=== PATIENT | female | born 1945 | race Caucasian/White ===

== ENCOUNTER → 2016-12-01 | Outpatient (CLI) | payer BC ==
--- NOTE | 2016-12-01 15:50 | MAMMOGRAPHY REPORT ---
BILATERAL DIGITAL SCREENING MAMMOGRAM WITH CAD: 12/01/2016 CLINICAL HISTORY: Routine screening examination. TECHNIQUE: Bilateral CC and MLO views were obtained. Current study was also evaluated with a Compute r Aided Detection (CAD) system. COMPARISON: Comparison is made to exams dated: 11/29/2015 mammogram, 11/23/2014 mammogram, 11/10/2013 ma mmogram, 10/21/2012 mammogram, 10/21/2011 mammogram - [facility], and 10/11/2007. BREAST COMPOSITION: The tissue of both breasts is almost entirely fatty. FINDINGS: There are stable benign grouping of calcifications in the right breast. No new suspicious mass, architectural distortion or cluster of microcalcifications is seen. IMPRESSION: ACR BI-RADS CATEGORY 2: BENIGN There is no mammographic evidence of malignancy. A 1 year screening mammogram is recommended. The pa tient will receive written notification of the results. Approximately 10% of breast cancers are not detected with mammography. A negative mammographic report should not delay biopsy if a clinically suggestive mass is present. Eloise Floyd M.D. ay/:12/01/2016 15:28:03 Fire Sprinkler Designer: Sade CARRENO(R)(M), [facility] letter sent: Normal 1/2 BI-RADS Code: ACR BI-RADS Category 2: Benign
== END | disposition home or self-care (01) ==
LOC: C.MAMM 09:56
PROVIDERS: ATTEND Nurse Practitioner
DX: M81.0 Age-related osteoporosis without current pathological fracture (principal); Z78.0 Asymptomatic menopausal state; Z12.31 Encounter for screening mammogram for malignant neoplasm of breast

== ENCOUNTER 2023-12-25 09:59 | Observation (INO) ==
--- NOTE | 2023-11-19 08:55 | PAT Medication Instructions ---
Medication Instructions Date of Service November 19, 2023 Home Medications ashwagandha root extract 500 mg capsule 500 mg PO QDL magnesium 500 mg tablet 500 mg PO QAM multivitamin 1 tab PO QAM STOP taking 2 weeks before surgery (or as soon as possible if surgery is within 2 weeks) ashwagandha root extract 500 mg capsule 500 mg PO QDL DO NOT take the morning of surgery magnesium 500 mg tablet 500 mg PO QAM multivitamin 1 tab PO QAM Other Notes NOTHING TO EAT OR DRINK AFTER MIDNIGHT If you have any questions please call us at [phone] or [phone] or [phone] or [phone]
--- NOTE | 2023-11-30 12:19 | Anesthesiology Consultation ---
Date of Service November 30, 2023 Assessment & Plan (1) Encounter for pre-operative examination: - Infectious disease screening: Per assessment on 11/30/23: No known recent infectious disease contacts or current infectious disease symptoms. - Outpatient joint assessment: Pt currently scheduled for inpatient pathway. If surgeon requests review for outpatient joint pathway, patient is an acceptable candidate for outpatient joint program from anesthesia standpoint pending surgeon's office assessment that patient is motivated, has good support and completes Same Day Joint Program preop requirements. - Preop CXR: Done 11/30/23- notes "Indeterminate 8 mm nodular density projects over the right suprahilar lung. Findings could be correlated with a nonemergent follow-up chest CT." Workload message written to PCP regarding preop CXR. Received PCP response 12/01/23 that PCP recommends patient schedule appointment to review further. - Patient acceptable risk for surgery pending upcoming PCP visit/CXR response (MADISYN, appt 12/03). Chart Review Chart Review: Patient seen in Pre Admission Testing Teaching & Discussion Pre-Anesthesia Teaching/Discussion Notes: Instructed NPO after midnight before surgery,except medications with 15 cc of water. Medication instructions provided according to the PAT guidelines. History Surgery Operation Date: 12/25/23 12:00 Proposed Procedures p Right Total Knee Arthroplasty - Vinicio Mejía DO Height/Weight Height: 4 ft 11 in Weight: 59.3 kg Allergies Allergy/AdvReac Type Severity Reaction Status Date / Time No Known Allergies Allergy Verified 11/17/23 07:25 Medications Home Medications Medication Instructions Recorded Confirmed Last Taken ashwagandha root extract 500 mg 500 mg PO QDL 11/17/23 11/17/23 Unknown capsule magnesium 500 mg tablet 500 mg PO QAM 11/17/23 11/17/23 Unknown multivitamin 1 tab PO QAM 11/17/23 11/17/23 Unknown Past Medical History Medical History (Updated 11/26/23 @ 16:15 by Vandana Manning) Elevated BP without diagnosis of hypertension Heart burn IBS (irritable bowel syndrome) Osteoarthritis Osteoporosis Sciatica Exercise / Class Metabolic Activity II 4-5 Yardwork/Stairs/Walk up hill (one FS: No CP, no SOB) Past Family History Family History Sister Diabetes Denies family history of Ovarian cancer Prostate cancer Myocardial infarction Breast cancer Colorectal cancer Hypertension Past Surgical History Surgical History (Updated 11/26/23 @ 16:15 by Vandana Manning) H/O wrist surgery Right History of cataract surgery Bilateral Hx of colonoscopy Hx of local excision of skin lesion Nose "Pre-cancerous" S/P excision of ganglion cyst Left Hand Past Anesthesia History No Hx of Anesthesia Complications and No Family Hx of Anesthesia Complications History of PONV No Hx of PONV Social History Smoking Status: Never smoker Do You Dip or Chew Tobacco: No Hx Alcohol Use: No Hx Substance Use: No substance use type: does not use Review of Systems Patient denies chest pain, shortness of breath, dyspnea on exertion, fever, chills, cough, wheezing. Physical Exam Vital Signs BP 167/80 P 64 TEMP 97.9 SP02 95%RA RESP 16 Physical Full cervical extension range of motion. Full TMJ range of motion. TMD > 3.5 finger breaths Mallampati Score I Dentition: Missing molars/sides Lungs: clear throughout to auscultation Cardiac: regular rate and rhythm, no murmurs noted Spine: normal Carotid arteries: negative bruit Extremities: no LE edema Lab Results Anesthesia Preop Results Results Anesthesia Widget: WBC 6.86 K/ul (4.8-10.8) 11/30/23 Hgb 12.2 g/dl (12.0-16.0) 11/30/23 Hct 37.1 % (37.0-47.0) 11/30/23 Plt 375 K/uL (130-400) 11/30/23 Na 132 mmol/L (136-145) L 11/30/23 K 4.2 mmol/L (3.5-5.1) 11/30/23 Cl 96 mmol/L (98-107) L 11/30/23 CO2 28 mmol/L (21-32) 11/30/23 BUN 12 mg/dl (6-23) 11/30/23 Creat 0.67 mg/dl (0.6-1.2) 11/30/23 Glucose Level 87 mg/dl (70-99(Fasting)) 11/30/23 PT 11.4 Seconds (9.0-12.0) 11/30/23 PTT 32 Seconds (21-31) H 11/30/23 INR 1.1 (0.9-1.1) 11/30/23 Blood Type A Negative 11/30/23 Antibody Screen NEGATIVE 11/30/23 Testing Electrocardiogram Date: 11/30/23 NSR at 60bpm. "Normal ECG" Chest X-Ray Date: 11/30/23 FINDINGS: Cardiomediastinal and hilar silhouettes are within normal limits. No pneumothorax, pleural effusion or airspace consolidation. 8 mm nodular density projects over the right upper lung. Sigmoidal thoracolumbar scoliosis. IMPRESSION: No acute processes of the chest. Indeterminate 8 mm nodular density projects over the right suprahilar lung. Findings could be correlated with a nonemergent follow-up chest CT.
--- NOTE | 2023-12-24 15:22 | History & Physical Report ---
Date of Service December 24, 2023 Assessment & Plan (1) Osteoarthritis of right knee: We will proceed with a right total knee arthroplasty. Postoperatively she will be started on aspirin for DVT prophylaxis and kept overnight in the hospital for postop medical management. She plans to use energy physical therapy upon discharge. History of Present Illness Chief Complaint: Osteoarthritis of the right knee. Primary Care Provider: TEMITOPE Lobo Jessy is a pleasant 78-year-old female who hasbeen dealing with chronic, increasing right knee pain. She works out in the mornings and she walks her dogs but she hasbeen cutting her workouts and her dog walking shorter because of her right knee. She hasdeveloped this significant valgus deformity of the right knee. She has to put ice on her knee every day. She wears the knee brace. X-rays and clinical examination been diagnostic for advanced osteoarthritis of the right knee. After failed conservative treatment, she has elected to proceed with a right total knee arthroplasty. Allergies Allergy/AdvReac Type Severity Reaction Status Date / Time No Known Allergies Allergy Verified 12/04/23 14:24 Home Medications Medication Instructions Recorded Confirmed Type ashwagandha root extract 500 mg 500 mg PO QDL 11/17/23 12/04/23 History capsule magnesium 500 mg tablet 500 mg PO QAM 11/17/23 12/04/23 History multivitamin 1 tab PO QAM 11/17/23 12/04/23 History Past Med/Surg History Problem List Interstitial lung abnormality present on imaging study Actinic keratosis Encounter for pre-operative examination Medical History Osteoarthritis IBS (irritable bowel syndrome) Heart burn Elevated BP without diagnosis of hypertension Sciatica Osteoporosis Surgical History Hx of local excision of skin lesion Nose "Pre-cancerous" Hx of colonoscopy History of cataract surgery Bilateral S/P excision of ganglion cyst Left Hand H/O wrist surgery Right Family History Sister Diabetes Denies family history of Ovarian cancer Prostate cancer Myocardial infarction Breast cancer Colorectal cancer Hypertension Social History Smoking Status: Never smoker Second Hand Exposure: No; Do You Dip or Chew Tobacco: No; Tobacco Cessation Education Requested by Patient: No Hx Alcohol Use: No Hx Substance Use: No Preferred Language: New Zealander Communication Ability: Effective Chair Spring Assembler Required: No Beliefs That Will Affect Care: None marital status: / Current Living Situation: Alone current occupational status: retired Other Information That Helps Us Care for You: No Feels Safe at Home: Yes Safety Concerns: Feels Safe At This Time caffeine: Yes (coffee and tea) Dental Care, Regularly: Yes Physical Activity Frequency: 5-6 Times per Week Physical Activity Frequency Comment: walking and bike Seatbelt Use: always Sunscreen Use: No Assistive Devices: Crutches and Glasses Assistive Devices Comment: "I hang on to a crutch when my knee feels weak" Review of Systems All systems reviewed & are unremarkable except as noted in HPI & below. Physical Exam On physical examination of the right knee, she has a significant valgus deformity. She has tenderness palpation over the distal lateral femoral condyle and over the lateral joint line.. Constitutional WD/WN, vitals as above Eyes PERRL, conjunctivae normal, anicteric sclerae ENMT external ear and nose normal, oropharynx normal Neck trachea midline, no thyromegaly Respiratory normal respiratory effort Cardiovascular RRR, no murmur, no edema Gastrointestinal (Abdomen) normal bowel sounds, soft, nontender, no hepatosplenomegaly Psychiatric A+Ox3, euthymic affect Results & Data Results & Data Laboratory Results . Diagnostic Findings X-rays of the right knee show advanced osteoarthritis with joint space narrowing, osteophyte formation, and [id number] tubulation. PG Care Time/CCT Total # of Minutes Spent Total Time Spent with Patient: Total time spent is greater than 50% in coordination of care (as documented) at patient's floor/unit and/or counseling patient: Coding Level of Care Code None Diagnoses Osteoarthritis of right knee M17.11
[~2023-12-25 09:59] MED LIST: BUPIVACAINE 0.5 % 5 MG/1 ML PF 10ML VIAL ONE; ROPIVACAINE 0.5% 5 MG/ML 30 ML VIAL ONE
[2023-12-25] MEDS: GABAPENTIN 300 MG CAP PO SCH (10:48)
[2023-12-25] MEDS: FAMOTIDINE 20 MG TAB PO SCH (10:48)
[2023-12-25] MEDS: ACETAMINOPHEN 500 MG TAB PO SCH ×2 (10:48→18:31)
[2023-12-25] MEDS: LR 500ML BOLUS, THEN 15ML/HR IV SCH (10:48)
[2023-12-25] MEDS: dexAMETHasone**PF** 10 MG/ML VIAL IV SCH (10:48)
[2023-12-25] MEDS: LR 60ML/HR IV SCH (10:48)
[2023-12-25] MEDS ORDERED: ATROPINE SULFATE 0.1 MG/ML 10ML SYR IV PRN (10:53)
[2023-12-25] MEDS ORDERED: ePHEDrine sulfate 50 MG/ML AMP IV PRN (10:53)
[2023-12-25] MEDS ORDERED: HYDROmorphone INJ 1 MG/ML SYRINGE IV PRN (10:53)
[2023-12-25] MEDS ORDERED: PROMETHAZINE HCL 6.25 MG in SODIUM CHLORIDE 0.9% 50 ML IV PRN (10:53)
--- NOTE | 2023-12-25 11:13 | History & Physical Bridge Note ---
Date of Service December 25, 2023 History & Physical Bridge Note I have examined the patient, reviewed the History & Physical and in the interval since the performance of the History & Physical I have noted the following changes of clinical significance: no changes noted
[2023-12-25] MEDS ORDERED: PROPOFOL IV EMULSION 10 MG/ML 20 ML VIAL IV ONE (11:42)
[2023-12-25] MEDS ORDERED: fentaNYL citrate PF 100 MCG/2 ML VIAL ONE (11:43)
[2023-12-25] MEDS ORDERED: MIDAZOLAM HCL 1 MG/ML 2ML VIAL ONE (11:43)
[2023-12-25] MEDS: TRANEXAMIC ACID 1,000 MG **IV Pre-op IV SCH (11:55)
[2023-12-25] MEDS: ceFAZolin 2000MG 2,000 MG/15 ML SYR IV SCH ×2 (12:11→20:12)
[2023-12-25] MEDS: ROPIV 0.5% 246mg, Ketorolac 30mg, EPINEPHrine 0.5mg in NSS INFIL SCH (12:47)
[2023-12-25] MEDS: ORTHO JOINT ANESTHETIC ONE (12:48)
[2023-12-25] MEDS ORDERED: ONDANSETRON INJ 2 MG/ML 2 ML VIAL ONE (12:56)
[2023-12-25] MEDS ORDERED: ePHEDrine sulfate 50 MG/5 ML SYR ONE (12:56)
[2023-12-25] MEDS: TRANEXAMIC ACID 1,000 MG **IV Intra-op IV SCH (13:12)
--- NOTE | 2023-12-25 15:18 | Anesthesiology Progress Note ---
Date of Service December 25, 2023 Anesthesia Post Procedure Vital Signs Vital Signs: Temp Pulse Pulse Resp BP Pulse Ox O2 Del Method 12/25/23 15:10 65 17 132/64 98 Room Air 12/25/23 15:00 65 14 122/62 97 Room Air 12/25/23 14:50 62 12 135/67 99 Room Air 12/25/23 14:40 66 16 129/71 96 Room Air 12/25/23 14:35 105 H 24 102/85 97 Room Air 12/25/23 14:25 78 13 135/66 98 Room Air 12/25/23 14:15 112 H 21 107/85 98 Room Air 12/25/23 14:05 119 H 22 108/66 98 Room Air 12/25/23 13:55 68 14 124/66 100 Oxymask 12/25/23 13:45 73 16 116/62 100 Oxymask 12/25/23 13:38 36.8 C 74 19 100/59 L 100 Oxymask 12/25/23 10:27 36.5 C 80 20 168/92 H 100 Room Air O2 Flow Rate 12/25/23 15:10 0 12/25/23 15:00 0 12/25/23 14:50 0 12/25/23 14:40 0 12/25/23 14:35 0 12/25/23 14:25 0 12/25/23 14:15 0 12/25/23 14:05 0 12/25/23 13:55 2 12/25/23 13:45 4 12/25/23 13:38 4 12/25/23 10:27 Transfer of Care Handoff Completed per policy Notes Mental Status: alert / awake / arousable and participated in evaluation Nausea / Vomiting: adequately controlled Pain: adequately controlled Airway Patency, RR, SpO2: stable & adequate BP & HR: stable & adequate and see Notes below Hydration State: stable & adequate Neuraxial Anesthesia: was administered and sensory block is resolving Anesthetic Complications: no major complications apparent and Pt Satisfied with anesthetic care Notes: Pt had afib episodes in PACU. Stable BP, pt asymtomatic. Rate controlled with 2 mg metoprolol IV. Cardiology consulted. Surgical team informed. Pt converted back to NSR prior to D/C to monitored bed.
--- NOTE | 2023-12-25 15:19 | XRay Report ---
XR knee RT 1 or 2V routine CLINICAL HISTORY: Postoperative evaluation. COMPARISON: Right knee radiographs October 20, 2023. FINDINGS: Alignment of the total right knee arthroplasty is anatomic. There is no periprosthetic fra cture or unexpected radiopaque foreign bodies. There are skin destin. IMPRESSION: Expected findings following total right knee arthroplasty. ACT 112: Negative or not required by law. Electronically signed by: Eliel Stephens M.D. 12/25/2023 3:18 PM
[2023-12-25 15:20] LABS: Hematocrit (blood only) 34.1 % (37.0-47.0); Hemoglobin 11.3 g/dl (12.0-16.0); Mean Corpuscular Hemoglobin 29.4 pg (25.0-34.0); Mean Corpuscular Hgb Conc 33.1 g/dL (32.0-36.0); Mean Corpuscular Volume 88.6 fL (80.0-100.0); Mean Platelet Volume 8.9 fL (9.4-12.4); Platelet Count 316 K/uL (130-400); RDW Coefficient of Variation 13.1 % (11.5-14.5); RDW Standard Deviation 42.2 fL (36.4-46.3); Red Blood Count 3.85 M/uL (4.20-5.40)
--- NOTE | 2023-12-25 15:26 | Cardiology Consultation ---
Date of Consultation December 25, 2023 Assessment & Plan (1) Paroxysmal atrial fibrillation with RVR: (2) Status post right knee replacement: Plan Generally healthy 78-year-old woman incidentally noted to have asymptomatic atrial fibrillation transiently after right knee replacement earlier this afternoon. Electrolytes and troponin pending, magnesium added to labs drawn. She received a small dose of IV beta-taisha, will initiate oral beta-taisha, metoprolol tartrate 25 mg every 8 hours (with hold orders for bradycardia or hypotension). Depending upon presence/absence and frequency of any recurrent atrial fibrillation, will determine most appropriate metoprolol dose and would consolidate to metoprolol succinate once daily upon discharge. No urgency on anticoagulation, since she is in sinus rhythm and is immediately postoperative will hold on this. However, since her [id number] score is 34 (gender, age, HTN?) She should be placed on apixaban 5 mg twice daily upon discharge. If subsequent monitor shows that her atrial fibrillation was only a perioperative phenomenon and not recurrent, she may not require long-term anticoagulation. Will check echocardiogram, she likely has some degree of mitral regurgitation which may be a contributing factor to her atrial fibrillation, although not likely clinically significant in regards to her current perioperative status. Dr. Vicente will be rounding from a cardiology perspective tomorrow, I will ask him to check in on the patient then. History of Present Illness Reason for Consultation: a-fib s/p surgery, r tka Requesting Physician: Vinicio Mejía DO Attending Physician: Vinicio Mejía DO History of Present Illness 78-year-old woman status post right total knee arthroplasty this afternoon with no prior cardiac history noted in recovery room to have asymptomatic paroxysmal atrial fibrillation with mildly rapid ventricular response. At recent baseline, she ambulates with mild difficulty due to her knee arthralgia but is able to walk the dog regularly with no chest pain, dyspnea, or palpitations. She denies any prior symptoms and was unaware that she was having atrial fibrillation in the recovery room, as she noted no chest pain, dyspnea, or palpitations during the dysrhythmia. ECGs show sinus rhythm alternating with atrial fibrillation, rate on ECG was 111 bpm and on monitor no greater than 120 bpm. Some episodes were self-limited, she did receive 2 mg IV metoprolol titrate after an episode lasted 10 to 20 minutes. More recently, she has remained in sinus rhythm. At the time of my evaluation this afternoon, she had no somatic complaints. Allergies Allergy/AdvReac Type Severity Reaction Status Date / Time No Known Allergies Allergy Verified 12/25/23 10:29 Home Medications Medication Instructions Recorded Confirmed Type amy root extract 500 mg 500 mg PO QDL 11/17/23 12/25/23 History capsule magnesium 500 mg tablet 500 mg PO QAM 11/17/23 12/25/23 History multivitamin 1 tab PO QAM 11/17/23 12/25/23 History aspirin 81 mg capsule 81 mg PO BID 12/25/23 12/25/23 History Patient History Medical History Postmenopausal Arthritis Osteoarthritis IBS (irritable bowel syndrome) Heart burn Elevated BP without diagnosis of hypertension Sciatica Osteoporosis Surgical History Hx of local excision of skin lesion Nose "Pre-cancerous" Hx of colonoscopy History of cataract surgery Bilateral S/P excision of ganglion cyst Left Hand H/O wrist surgery Right Family History Sister Diabetes Denies family history of Ovarian cancer Prostate cancer Myocardial infarction Breast cancer Colorectal cancer Hypertension Social History Smoking Status: Never smoker Second Hand Exposure: No; Do You Dip or Chew Tobacco: No; Tobacco Cessation Education Requested by Patient: No Hx Alcohol Use: No Hx Substance Use: No Preferred Language: Yoruba Communication Ability: Effective Chief Data Officer Required: No Beliefs That Will Affect Care: None marital status: / Current Living Situation: Alone current occupational status: retired Other Information That Helps Us Care for You: No Feels Safe at Home: Yes Safety Concerns: Feels Safe At This Time caffeine: Yes (coffee and tea) Dental Care, Regularly: Yes Physical Activity Frequency: 5-6 Times per Week Physical Activity Frequency Comment: walking and bike Seatbelt Use: always Sunscreen Use: No Assistive Devices: Crutches and Glasses Assistive Devices Comment: "I hang on to a crutch when my knee feels weak" Physical Exam Physical Exam: Adult white female in no distress. Afebrile. BP 114/60 mmHg. Pulse 66 bpm and regular without ectopy. Respirations 17 unlabored. Skin: no ecchymoses or generalized lesions. HEENT: unremarkable. Neck: JVP at the clavicle at 90 degrees, no carotid bruits. Lungs: clear. Cardiac: regular rhythm, normal S1-2, 2/6 basal systolic ejection murmur which is not rating, 2/6 apical holosystolic murmur rating to the axilla, no diastolic murmur. Abdomen: benign. Extremities: no edema, pulses intact. Neurologic: normal affect and conversation, nonfocal. Results & Data Laboratory Results Hemoglobin 11.3 with normal white count and platelet count. Preop labs with sodium 132 but otherwise normal electrolytes and creatinine of 0.67. Repeat PRP pending. Troponin pending. Diagnostic Findings Initial ECG in recovery room showed atrial fibrillation with ventricular rate 111 bpm, nonspecific T wave flattening with minimal ST depression (curving). ECG 10 minutes later showed sinus rhythm at [address] segments. ECG 1/2-hour after the last showed sinus rhythm at 65 bpm and was again unremarkable. Recent chest CT (earlier this month) showed possible interstitial lung disease, otherwise unremarkable. Chest x-ray November 2023 showed no acute process, nodular density right suprahilar lung prompted a subsequent CT of the chest which felt the x-ray finding was artifactual. PG Care Time/CCT Total # of Minutes Spent Total Time Spent with Patient: Total time spent is greater than 50% in coordination of care (as documented) at patient's floor/unit and/or counseling patient: Coding Level of Care Code 24117 IN/OBS CONSULT LVL 3,45M Diagnoses Paroxysmal atrial fibrillation with RVR I48.0 Status post right knee replacement Z96.651
[2023-12-25 15:30] LABS: Calcium 9.5 mg/dl (8.6-10.3); Creatinine Clr Calc Pharmacy 56.7 ml/min; Potassium 4.1 mmol/L (3.5-5.1)
[2023-12-25 15:38] LABS: Troponin I High Sensitivity 4.6 pg/ml (0-14)
[2023-12-25 15:53] LABS: Magnesium 1.8 mg/dl (1.7-2.4)
[2023-12-25 16:00] LABS: Basophils # (auto) 0.03 K/uL (0.00-0.20); Basophils % (auto) 0.4 %; Immature Granulocytes # (auto) 0.03 K/uL (0.01-0.20); Immature Granulocytes % (auto) 0.4 %; Lymphocytes # (auto) 0.36 K/uL (1.20-3.40); Lymphocytes % (auto) 4.5 %; Monocytes # (auto) 0.04 K/uL (0.11-0.59); Monocytes % (auto) 0.5 %; Neutrophils # (auto) 7.54 K/uL (1.40-6.50); Neutrophils % (auto) 94.2 %; RBC Morphology Unremarkable
[2023-12-25] MEDS: METOPROLOL TARTRATE 25 MG TAB PO STA (16:30)
[2023-12-25 16:33] VITALS: RESP 18
--- NOTE | 2023-12-25 16:34 | Electrocardiogram Report ---
Test Reason : Blood Pressure : */* mmHG Vent. Rate : 111 BPM Atrial Rate : 120 BPM P-R Int : * ms QRS Dur : 84 ms QT Int : 334 ms P-R-T Axes : * 55 -5 degrees QTcB Int : 454 ms Atrial fibrillation with rapid ventricular response Diffuse Minor Nonspecific ST and T wave abnormality Abnormal ECG When compared with ECG of 30-Nov-2023 12:49, Atrial fibrillation has replaced Sinus rhythm Vent. rate has increased by [address] and T wave abnormality now present Confirmed by Ezequiel Gilbert ([id number]) on 12/25/2023 4:33:35 PM Referred By: Vinicio Mejía Confirmed By: Ezequiel Gilbert
--- NOTE | 2023-12-25 16:36 | Electrocardiogram Report ---
Test Reason : Blood Pressure : */* mmHG Vent. Rate : 74 BPM Atrial Rate : 74 BPM P-R Int : 192 ms QRS Dur : 86 ms QT Int : 376 ms P-R-T Axes : 67 54 75 degrees QTcB Int : 417 ms Normal sinus rhythm Diffuse Minor Nonspecific T wave abnormality Abnormal ECG When compared with ECG of 25-Dec-2023 14:15, Sinus rhythm has replaced Atrial fibrillation Vent. rate has decreased by 37 bpm Confirmed by Ezequiel Gilbert ([id number]) on 12/25/2023 4:36:01 PM Referred By: Vinicio Mejía Confirmed By: Ezequiel Gilbert
--- NOTE | 2023-12-25 16:37 | Electrocardiogram Report ---
Test Reason : Blood Pressure : */* mmHG Vent. Rate : 65 BPM Atrial Rate : 65 BPM P-R Int : 194 ms QRS Dur : 80 ms QT Int : 418 ms P-R-T Axes : 61 53 43 degrees QTcB Int : 434 ms Normal sinus rhythm Normal ECG When compared with ECG of 25-Dec-2023 14:25, Nonspecific T wave abnormality no longer present Confirmed by Ezequiel Gilbert ([id number]) on 12/25/2023 4:36:47 PM Referred By: Vinicio Mejía Confirmed By: Ezequiel Gilbert
[2023-12-25] MEDS ORDERED: ONDANSETRON INJ 2 MG/ML 2 ML VIAL IV PRN (17:09)
[2023-12-25] MEDS ORDERED: MAGNESIUM HYDROXIDE SUSP 30 ML UDC PO PRN (17:09)
[2023-12-25] MEDS ORDERED: bisacodyL 10 MG SUPP PR PRN (17:09)
[2023-12-25] MEDS ORDERED: oxyCODONE HCL IR 5 MG TAB (IMMEDIATE RELEASE) PO PRN (17:09)
[2023-12-25] MEDS ORDERED: NALOXONE HCL 0.4 MG/1 ML VIAL/CARP IV PRN (17:09)
[2023-12-25] MEDS ORDERED: METOCLOPRAMIDE HCL INJ 5 MG/ML 2 ML VIAL IV PRN (17:09)
[2023-12-25] MEDS ORDERED: HYDROmorphone INJ 0.5 MG/0.5 ML SYR IV PRN (17:09)
[2023-12-25] MEDS ORDERED: PNEUMOCOCCAL VACCINE (PCV20) 20-VAL CONJ-DIP CRM/PF 0.5 ML SYR IM ONE (18:12)
[2023-12-25] MEDS: KETOROLAC TROMETHAMINE 15 MG/ML VIAL IV SCH (18:30)
[2023-12-25] MEDS: SODIUM CHLORIDE 0.9% 1,000 ML IV SCH (18:31)
[2023-12-25] MEDS: ASPIRIN 81 MG ECTAB PO SCH (20:12)
[2023-12-25] MEDS: SENNA 8.6 MG TAB PO SCH (20:12)
[2023-12-25] MEDS: DOCUSATE SODIUM 100 MG CAP PO SCH (20:12)
[2023-12-25] MEDS: METOPROLOL TARTRATE 25 MG TAB PO SCH (23:00)
[2023-12-26 08:18] VITALS: BP 127/69; PULSE 60; TEMP 97.5; O2SAT 99
--- NOTE | 2023-12-26 09:38 | Orthopedic Progress Note ---
Date of Service December 26, 2023 Assessment & Plan (1) Status post right knee replacement: Overall she is doing well. She is not having much pain in the right knee. She will be seen by physical therapy today for ambulation and range of motion exercises. She is on aspirin for DVT prophylaxis. The nursing staff can change her dressing after physical therapy. If she is cleared by the high school home economics teacher then she can be discharged to home later today. Colleen Jiménez was seen and examined at bedside this morning. Overall she is doing fairly well. She did have some atrial fibrillation last night and a cardiology consult was ordered. She has an echo scheduled for today. She is doing well with her knee. She has been up and ambulating. She has no complaints.. Review of Systems All systems reviewed & are unremarkable except as noted in HPI & below. Physical Exam On physical examination the right knee, the dressing is clean and dry. Her leg is out full extension. She has active dorsiflexion plantarflexion of her right ankle.. Results & Data Results & Data Laboratory Results . Diagnostic Findings Postoperative x-rays of the right knee show the prosthesis to be in anatomic alignment without any evidence of fracture complication, or loosening.. PG Care Time/CCT Total # of Minutes Spent Total Time Spent with Patient: Total time spent is greater than 50% in coordination of care (as documented) at patient's floor/unit and/or counseling patient: Coding Level of Care Code 00494 Post Operative Follow-Up Diagnoses Status post right knee replacement Z96.651
[2023-12-26] MEDS: dexAMETHasone 4 MG TAB PO SCH (10:17)
[2023-12-26] MEDS: MULTIVITAMIN TAB PO SCH (10:18)
--- NOTE | 2023-12-26 22:14 | XCELERA ---
[id number]
--- NOTE | 2024-01-04 16:00 | Discharge Summary ---
Date of Service January 04, 2024 Admission HPI (Per Admitting) Jessy is a pleasant 78-year-old female who hasbeen dealing with chronic, increasing right knee pain. She works out in the mornings and she walks her dogs but she hasbeen cutting her workouts and her dog walking shorter because of her right knee. She hasdeveloped this significant valgus deformity of the right knee. She has to put ice on her knee every day. She wears the knee brace. X-rays and clinical examination been diagnostic for advanced osteoarthritis of the right knee. After failed conservative treatment, she has elected to proceed with a right total knee arthroplasty. Admission Exam (Per Admitting) On physical examination of the right knee, she has a significant valgus deformity. She has tenderness palpation over the distal lateral femoral condyle and over the lateral joint line.. Principal Diagnosis Same as "Discharge Diagnosis" noted below under Discharge Instructions. Discharge Exam On physical examination the right knee, the dressing is clean and dry. Her leg is out full extension. She has active dorsiflexion plantarflexion of her right ankle.. Discharge Data Consultations 12/25/23 14:41 Consult Cardiology Stat Procedures Performed Operation Date: 12/25/23 12:00 Actual Procedures p Right Total Knee Arthroplasty(Right) - Vinicio Mejía DO Ordered Studies 12/25/23 05:00 US - OR guided needle placemen Routine Hospital Course (1) Status post right knee replacement: On December 25, 2023 Jessy arrived at [facility] and underwent a right knee replacement without complication. She had a spinal anesthetic. Postoperatively she was started on aspirin for DVT prophylaxis and transferred to the general orthopedic floors. Overnight, she was experiencing some A-fib. The box sorter was consulted. The following day she was doing better. She did have an echocardiogram and was seen again by the box sorter. She was cleared by the box sorter to return home. She was also seen by physical therapy for ambulation and range of motion exercises. She was then discharged to home. She will follow-up with orthopedics in 2 weeks. PG Care Time/CCT Total # of Minutes Spent Total Time Spent with Patient: Total time spent is greater than 50% in coordination of care (as documented) at patient's floor/unit and/or counseling patient: Discharge Plan Discharge Items Patient Disposition: Home - Self-Care Reason For Visit: POST OP TKA Discharge Diagnosis: Right knee replacement Activity: Per Instructions section Non-emergency contact: Surgeon Call non-emergency contact if: your wound has increased redness and your wound has increased drainage Follow-up/Referrals: Sarah King CRNP [Primary Care Provider] - 01/07/24 10:30 am Diet: Regular Addtl Attending Provider Instructions: Activity and Therapy Recommendations: * If you are using [facility] then therapy will be provided at your home until they feel you have accomplished all of your goals. * If you are using [facility] then Physical Therapy will be provided until they feel you are ready to start Outpatient Physical Therapy. * If you are not using home therapy then Outpatient Physical Therapy should start about 3-5 days from your day of surgery. Therapy will last about 6-10 weeks * It is important not to put a pillow under your knee when you are relaxing or sleeping. It is just as important to make sure you are getting your knee perfectly straight as it is to regain your knee bend. * You were shown a series of exercises in the hospital. Do these exercises three times each day including the exercises you were shown in physical therapy. * Get up and walk several times each day. For the first four weeks, try not to stand or walk for more than one hour at a time. If you do stand or walk for more than one hour, you will not hurt anything, but your leg will likely swell. * As you feel comfortable, you may change from the walker or crutches to a cane and then to independent walking. Medications: * Narcotic You will likely be sent home from the hospital with a prescription for the narcotic pain medication that worked best throughout your stay. * Cefadroxil -take the antibiotic twice a day for 10 days to help prevent infection. * Aspirin Most patients will be required to take Aspirin 81mg twice a day for 6 weeks after surgery. This is obtained [id number] and a prescription is not necessary. * Other medications may be prescribed for specific circumstances. If you have any questions, please call the office at . * Resume previous home medications unless otherwise instructed TEDs/Elastic Stockings: The white elastic stockings help limit swelling and prevent blood clots from forming in your legs.~ The more you wear them, the more they work. Wear them for six weeks. Dressing Care: The dressing can be changed after physical therapy on postop day #1. Daily dry dressing changes for a few days, especially if the incision is still draining some. If the incision is not draining then you may leave the destin open to air. If there is a little bit of drainage or if the destin are getting stuck on your clothing then cover the incision with a dry dressing. The destin will be removed at your 2 week follow-up appointment. Showering: You may shower 5 days from the day of surgery as long as the incision is no longer draining. You may shower with the destin exposed. Let soapy water run over the destin and pat them dry. Do not scrub or soak the incision. Diet: You may resume your previous diet. Things To Watch For: * Drainage from the incision site that occurs more than one week after your surgery. * Increased redness at the incision site. * Fever above 102 degrees Fahrenheit. * Unusual chest pain or shortness of breath. * Call [facility] at with any of the above problems Follow-Up Visit: Follow-up with Dr. Mejía's PA (Vinicio Muñiz) 2-3 weeks after your day of surgery. He will remove your destin and answer any questions. If you have any additional questions or concerns, Dr Mejía is usually in the office at the same time and will be available An appointment was probably scheduled when you signed-up for surgery in the office. If you have any questions call Office Instructions: More detailed instructions as well as Frequently Asked Questions were provided in a folder by our office when you signed-up for surgery. Please review these instructions when you get home. If you have any further questions or concerns, please feel free to call the office at [phone] Pending Studies at Discharge: No Stand-Alone Forms: [facility] [employer], Smoking Cessation Medications and DC Order Prescriptions: New oxycodone 5 mg Tablet 5 mg PO Q4H PRN (Reason: pain) Qty: 30 0RF cefadroxil 500 mg capsule 500 mg PO BID 10 Days Qty: 20 0RF Continued multivitamin Tablet 1 tab PO QAM magnesium 500 mg Tablet 500 mg PO QAM ashwagandha root extract 500 mg Capsule 500 mg PO QDL aspirin 81 mg Capsule 81 mg PO BID 42 Days Qty: 0 0RF Discharge Orders: Discharge Order (Routine); Ordered 12/26/23 Ordered By: Vinicio Mejía Admission Data Admit Date/Time: 12/25/23 14:52 Attending Provider: Vinicio Mejía Admit Provider: Vinicio Mejía Primary Care Provider: Sarah King Other Providers: Ezequiel Gilbert Other Interventions: Discharge Summary Assessment (RN) Last Done: 12/26/23 10:55
--- NOTE | 2024-01-04 16:04 | Operative Report ---
PG Post Operative Report Pre & Post Diagnosis Operation Date: 12/25/23 12:00 Pre-Op Diagnosis: Right Knee Arthritis Post-Op Diagnosis: Right Knee Arthritis I identified the patient and participated in the time-out.: Yes Procedure Operation Date: 12/25/23 12:00 Actual Procedures p Right Total Knee Arthroplasty(Right) - Vinicio Mejía DO Surgeon Vinicio Mejía DO Test Engineer Vinicio Muñiz PA-C Estimated Blood Loss 30 Findings Consistent with Post-Op Diagnosis Specimens Right femoral and tibial bone Description of Procedure Implants used: I used a [employer] total knee arthroplasty system with a size 7 narrow PS femur, D tibia, 31 oval patella, and a size 14 CPS polyethylene bearing. All components were cemented in place with Biomet cement. Jessy arrived [facility] for the above procedure. She was seen in the preoperative holding area and the operative extremity was identified and signed. She was given a preoperative antibiotic, TXA, a spinal anesthetic and an adductor nerve block. She was taken back to the operating room and laid on the table in supine position. She was given basic sedation. The operative knee was then prepped and draped in sterile fashion. A timeout was done, and the patient and the operative extremity was properly identified. A midline incision was made directly over the patella. Dissection was taken down to the extensor mechanism. A subvastus arthrotomy was used. The medial retinaculum was released and the fat pad was mostly excised. The knee was flexed and the ACL, PCL, and meniscus were removed. A drill was sent down the center of the femoral canal followed by an intramedullary tato. Off that tato a distal femoral cutting block was placed. 9 mm was resected off the distal femur at 5 of valgus. A posterior referencing AP sizing guide was then placed on the distal femur. The femur measured to be a size 7. 2 drill holes were placed in 3 of external rotation. A 4-in-1 cutting block was then impacted into place. Anterior, posterior, and chamfer cuts were then made. The proximal tibia was then exposed. An external tibial alignment guide was placed. A tibial cut guide was then anchored in place and the proximal tibia was then resected. The posterior aspect of the knee was then opened up and any additional meniscus fragments and osteophytes were removed. The tibia measured to be a size D. The tibial plate was then placed in the appropriate rotation and the tibia was drilled and punched. Trial components were then placed. I used a size 14 CPS polyethylene insert. The knee was brought through a full range of motion and felt to be stable. The peg holes for the femoral component were then drilled. The patella was then everted and 9 mm was resected off the posterior aspect of the patella. The patella measured to be a size 31 oval. 3 peg holes were then drilled. A trial patella was placed. The knee was once again brought through a full range of motion and felt to be stable. Trial components were then removed. The surrounding soft tissues were injected with 100 cc of an orthopedic pain control cocktail. All components were then cemented into place with Biomet cement. The final polyethylene insert was then snapped into place. Once cement was dry the tourniquet was deflated. Hemostasis was obtained. A dilute betadyne lavage was then done for 3 minutes. The joint was then irrigated with normal saline solution. The subvastus arthrotomy was then closed with #1 Vicryl suture. The skin was closed with 2-0 Vicryl, 3-0V lock suture, and destin. A soft compressive dressing was placed. She was then transferred to a hospital bed and taken to the postanesthesia care unit in stable condition. She tolerated the procedure well. Vinicio Muñiz PA-C, was present for the entire procedure. He was critical for patient positioning, prepping, draping, retraction exposure, wound closure and application of sterile dressing. I attest to the content of the Intraoperative Record and any orders documented therein. Any exceptions are noted below.
== END 2023-12-26 11:47 | disposition home or self-care (01) ==
LOC: EDINP 09:59 → 2N 09:59 → ASU 09:59 → 2N 16:48